=== PATIENT | female | born 1955 | race Two or more races ===

== ENCOUNTER 2021-04-21 01:01 | Emergency (ER) | payer OTHER ==
[~2021-04-21] VITALS: Ht 157.5 cm; Wt 68.0 kg
[2021-04-21] MEDS ORDERED: ONDANSETRON HCL 4 MG/2 ML VIAL IV ONE (01:15)
[2021-04-21] MEDS ORDERED: KETOROLAC TROMETH 30 MG/ML 1ML VIAL IV ONE (01:15)
[2021-04-21] MEDS ORDERED: SODIUM CHLORIDE 0.9% 1,000 ML IVB ONE (01:15)
[2021-04-21 03:55] LABS: Basophils # (auto) 0.1 10 ^3/uL (0-0.2); Basophils % (auto) 0.8 % (0.0-2.0); Eosinophils # (auto) 0.1 10 ^3/uL (0-0.8); Eosinophils % (auto) 2.2 % (0.0-7.0); Hematocrit 44.4 % (36.0-46.0); Hemoglobin 15.1 g/dL (12.2-16.2); Lymphocytes # (auto) 1.6 10 ^3/uL (0.4-5.4); Lymphocytes % (auto) 24.8 % (10.0-50.0); Mean Corpuscular Hemoglobin 30.3 pg (28.0-32.0); Mean Corpuscular Hgb Conc. 34.1 g/dL (32.0-36.0); Mean Corpuscular Volume 88.9 fL (80.0-100.0); Monocytes # (auto) 0.8 10 ^3/uL (0-1.3); Monocytes % (auto) 12.2 % (0.0-12.0); Neutrophils # (auto) 3.8 10 ^3/uL (1.6-8.6); Nucleated Red Blood Cells % 0.2 %; Red Blood Cells 4.99 10^6/uL (4.0-5.20); Red Cell Distribution Width 12.3 % (11.8-14.3); White Blood Cell 6.3 10^3/uL (4.4-10.8)
[2021-04-21 04:14] LABS: Albumin 3.9 g/dL (3.4-5.0); BUN/Creatinine Ratio 15.4; Calcium 8.8 mg/dL (8.5-10.1); Potassium 3.3 mmol/L (3.5-5.1)
[2021-04-21 04:17] LABS: Bilirubin, Total 0.6 mg/dL (0.2-1.0); Total Protein 7.9 g/dL (6.4-8.2)
[2021-04-21] MEDS ORDERED: BACLOFEN 10 MG TAB PO ONE (04:45)
[2021-04-21] MEDS ORDERED: HYDROcodone-ACET 10/325MG TAB PO ONE (04:45)
[2021-04-21] MEDS ORDERED: BACLOFEN 10 MG TAB ONE (05:38)
[2021-04-21 05:48] LABS: Urine Bacteria NONE SEEN /hpf (None Seen); Urine Blood Negative /uL (Negative); Urine Mucus FEW (None Seen); Urine Specific Gravity 1.015 (1.001-1.035); Urine WBC 8 /hpf (0 - 5)
[2021-04-21] MEDS ORDERED: HYDR-4902 PO (05:53)
[2021-04-21] MEDS ORDERED: NITR-87 PO (05:53)
[2021-04-21 06:10] VITALS: BP 183/101
== END 2021-04-21 06:33 | disposition home or self-care (01) ==
LOC: ER 01:01
DX: M54.9 Dorsalgia, unspecified (principal); R10.9 Unspecified abdominal pain; R19.7 Diarrhea, unspecified; I10 Essential (primary) hypertension
CPT/HCPCS: 36415; 74176; 80053; 81001; 83690; 85025; 96361; 96374; 96375; 99284; J1885; J2405; J7030

== ENCOUNTER 2021-04-24 17:01 | Emergency (ER) | payer OTHER ==
[~2021-04-24] VITALS: Ht 157.5 cm; Wt 68.0 kg
[~2021-04-24 17:01] MED LIST: HYDR-4902 PO; NITR-87 PO
[2021-04-24] MEDS ORDERED: cloNIDine HCL 0.1 MG TAB ONE (17:14)
[2021-04-24] MEDS ORDERED: cloNIDine 0.2 mg/24hr 7DAY PATCH TD ONE (17:15)
[2021-04-24 20:25] LABS: Basophils # (auto) 0.1 10 ^3/uL (0-0.2); Eosinophils # (auto) 0.1 10 ^3/uL (0-0.8); Eosinophils % (auto) 1.6 % (0.0-7.0); Hematocrit 42.2 % (36.0-46.0); Hemoglobin 14.5 g/dL (12.2-16.2); Lymphocytes % (auto) 19.1 % (10.0-50.0); Mean Corpuscular Hemoglobin 30.2 pg (28.0-32.0); Mean Corpuscular Hgb Conc. 34.4 g/dL (32.0-36.0); Mean Corpuscular Volume 87.9 fL (80.0-100.0); Monocytes # (auto) 0.6 10 ^3/uL (0-1.3); Monocytes % (auto) 11.5 % (0.0-12.0); Neutrophils # (auto) 3.6 10 ^3/uL (1.6-8.6); Neutrophils % (auto) 66.8 % (37.0-80.0); Nucleated Red Blood Cells % 0.1 %; Red Cell Distribution Width 12.7 % (11.8-14.3); White Blood Cell 5.4 10^3/uL (4.4-10.8)
[2021-04-24 21:01] LABS: Salicylate 1.8 mg/dL (2.8-20.0)
[2021-04-24 21:02] LABS: Potassium 3.9 mmol/L (3.5-5.1)
[2021-04-24 21:07] LABS: Acetaminophen < 2.0 ug/mL (10-30)
[2021-04-24 21:08] LABS: Alcohol, Urine < 3.0 mg/dL (0-10); Benzodiazephine Screen, Urine POSITIVE (NEGATIVE); Cocaine Screen, Urine NEGATIVE (NEGATIVE); Opiate Scree,Urine POSITIVE (NEGATIVE); Phencyclidine Screen, Urine NEGATIVE (NEGATIVE)
[2021-04-24 21:12] LABS: Albumin 3.7 g/dL (3.4-5.0); Bilirubin, Total 0.3 mg/dL (0.2-1.0); Calcium 8.6 mg/dL (8.5-10.1); Total Protein 7.3 g/dL (6.4-8.2)
[2021-04-24 21:16] LABS: Amphetamine Screen, Urine NEGATIVE (NEGATIVE); Barbiturate Scree,Urine NEGATIVE (NEGATIVE); Cannabinoid Screen, Urine NEGATIVE (NEGATIVE)
[2021-04-24 22:55] VITALS: BP 141/72
== END 2021-04-24 23:16 | disposition home or self-care (01) ==
LOC: ER 17:05
DX: M54.2 Cervicalgia (principal); R51.9 Headache, unspecified; F11.10 Opioid abuse, uncomplicated; I10 Essential (primary) hypertension
CPT/HCPCS: 36415; 70450; 71045; 72125; 80053; 80307; 80329; 84484; 85025; 93005